=== PATIENT | male | born 1975 | race Two or more races ===

== ENCOUNTER 2020-03-29 01:12 | Emergency (ER) | payer MEDICAID ==
[~2020-03-29] VITALS: Ht 167.6 cm; Wt 71.3 kg
[2020-03-29] MEDS ORDERED: SODIUM CHLORIDE FLUSH 10ML SYR IVF ONE (01:30)
--- NOTE | 2020-03-29 01:39 | NUR ---
PT PRESENTS TO ER C/O LLQ ABD PAIN X2DAYS. HX OF DIVERTICULITIS. PT CONNECTED TO MONITORING VSS NADN. FAMILY AT BEDSIDE
[2020-03-29 01:40] VITALS: BP 113/73
--- NOTE | 2020-03-29 01:40 | NUR ---
LAB AT BEDSIDE FOR BLOOD DRAW AT THIS TIME
[2020-03-29 01:51] LABS: BASOPHILS # (AUTO) 0.07 x10^3/uL (0-0.1); BASOPHILS % (AUTO) 1 % (0-1); EOSINOPHILS # (AUTO) 0.19 x10^3/uL (0-0.4); EOSINOPHILS % (AUTO) 2 % (1-7); LYMPHOCYTES # (AUTO) 2.06 x10^3/uL (1-3.4); LYMPHOCYTES % (AUTO) 16 % (22-44); MD NO; MEAN CORPUSCULAR HGB CONC 33.5 g/dL (33.2-36.2); MEAN CORPUSCULAR VOLUME 89.7 fL (81-97); MEAN PLATELET VOLUME 9.2 fL (7.4-10.4); MONOCYTES % (AUTO) 9 % (2-9); NEUTROPHILS # (AUTO) 9.45 x10^3/uL (1.8-6.8); NEUTROPHILS % (AUTO) 73 % (42-75); PLATELET COUNT 206 x10^3/uL (130-400); RED BLOOD COUNT 4.99 x10^6/uL (4.38-5.82); RED CELL DISTRIBUTION WIDTH 13.9 % (9.4-14.8)
[2020-03-29 02:02] LABS: ALANINE AMINOTRANSFERASE 34 U/L (12-78); ALBUMIN 3.9 g/dL (3.4-5.0); ANION GAP 5 mmol/L (5-15); CHLORIDE 109 mmol/L (98-107); CREATININE 1.13 mg/dL (0.7-1.3)
[2020-03-29 02:05] LABS: ALKALINE PHOSPHATASE 87 U/L (45-117); BILIRUBIN,TOTAL 0.5 mg/dL (0.2-1.0); TOTAL PROTEIN 7.7 g/dL (6.4-8.2)
--- NOTE | 2020-03-29 02:15 | NUR ---
PT UP TO RESTROOM FOR URINE SAMPLE AT THIS TIME, EDUCATED ON CLEAN CATCH METHOD
[2020-03-29 02:42] LABS: MICROSCOPIC NOT IND
--- NOTE | 2020-03-29 02:46 | NUR ---
urine specimen collected and walked to lab
[2020-03-29] MEDS ORDERED: OMNIPAQUE 350 MG/ML, 100ML BOTTLE ONE (03:57)
== END 2020-03-29 04:59 | disposition home or self-care (01) ==
LOC: ED 01:53
DX: K57.32 Diverticulitis of large intestine without perforation or abscess without bleeding (principal); R10.32 Left lower quadrant pain
CPT/HCPCS: 36415; 74177; 80053; 81003; 83690; 85025; 99285; Q9967

== ENCOUNTER 2020-12-28 09:58 | Emergency (ER) | payer MEDICAID ==
[~2020-12-28] VITALS: Ht 165.1 cm; Wt 70.6 kg
[2020-12-28] MEDS ORDERED: LIDOCAINE-MPF 1%, 5ML ONE (10:15)
--- NOTE | 2020-12-28 10:21 | NUR ---
ER PA AT BS. PT HAS BAND-AIDS TO TIPS OF 2ND & 3RD FINGERS. WOUNDS NOT ACTIVELY BLEEDING AT THIS TIME.
--- NOTE | 2020-12-28 10:52 | NUR ---
PT'S 3RD FINGER WAS NUMBED BY ER PA D/T INTENSE PAIN/INCREASED SENSITIVITY. XR ORDERED. PT WILL BE MEDICATED PER ORDERS. UNDERSTANDS POC.
[2020-12-28] MEDS ORDERED: KETOROLAC 30 MG/1 ML ONE (10:54)
[2020-12-28] MEDS ORDERED: DIPH,PERTUSS(ACELL),TET VAC/PF 0.5 ML IM-VACC ONE ×2 (10:54→11:00)
[2020-12-28] MEDS ORDERED: KETOROLAC 30 MG/1 ML IM ONE (11:00)
--- NOTE | 2020-12-28 11:09 | NUR ---
PT MEDICATED PER ORDERS. 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
[2020-12-28 11:47] VITALS: BP 92/61
--- NOTE | 2020-12-28 11:49 | NUR ---
NINA LORENZANA WAS IN FOR RECHECK. DERMABOND APPLIED TO L 3RD FINGER WOUND. WOUND CDI.
--- NOTE | 2020-12-28 11:58 | NUR ---
BAND-AIDS PROVIDED FOR L 2ND & 3RD FINGERS. D/C INSTRUCTIONS, MEDS & F/U APPT RV'WD WITH PT, HE VERBALIZES UNDERSTANDING. RX GIVEN X1. PT AMBULATED OUT WITH WITHOUT DIFFICULTY.
== END 2020-12-28 12:03 | disposition home or self-care (01) ==
LOC: ED 11:59
DX: S61.211A Laceration without foreign body of left index finger without damage to nail, initial encounter (principal); X58.XXXA Exposure to other specified factors, initial encounter; Y93.89 Activity, other specified; Y92.009 Unspecified place in unspecified non-institutional (private) residence as the place of occurrence of the external cause; Y99.8 Other external cause status
CPT/HCPCS: 12002; 73130; 90471; 90715; 96372; 99284; J1885

== ENCOUNTER 2021-03-13 14:08 | Emergency (ER) | payer SELFPAY ==
[~2021-03-13] VITALS: Ht 162.6 cm; Wt 70.0 kg
[2021-03-13 17:37] VITALS: BP 115/79
== END 2021-03-13 20:52 | disposition left against medical advice (07) ==
LOC: ED 20:30
DX: R68.84 Jaw pain (principal)
CPT/HCPCS: 70100; 99283

== ENCOUNTER 2021-03-30 10:49 | Emergency (ER) | payer MEDICAID ==
[~2021-03-30] VITALS: Ht 162.6 cm; Wt 69.5 kg
[2021-03-30 11:17] VITALS: BP 111/79
[2021-03-30] MEDS ORDERED: KETOROLAC 30 MG/1 ML IM ONE (12:30)
[2021-03-30] MEDS ORDERED: KETOROLAC 30 MG/1 ML ONE (12:48)
== END 2021-03-30 14:19 | disposition home or self-care (01) ==
LOC: ED 11:43
DX: M26.602 Left temporomandibular joint disorder, unspecified (principal)
CPT/HCPCS: 96372; 99283; J1885